=== PATIENT | female | born 2000 | race Caucasian/White ===

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

== ENCOUNTER 2022-02-17 16:17 | Emergency (ER) | payer MEDICAID ==
[~2022-02-17] VITALS: Ht 167.6 cm; Wt 66.0 kg
[~2022-02-17 16:17] MED LIST: CEPH500C2 MT; IBUP-2029 MT; PYR200 MT
[2022-02-17] MEDS ORDERED: BACITRACIN ZINC OINT UDPKT TOP NR (17:30)
[2022-02-17] MEDS ORDERED: LIDOCAINE HCL 1% 20ML VIAL (Pyxis) INJ INFIL NR (17:30)
[2022-02-17] MEDS ORDERED: IBUPROFEN 600MG TABLET PO STA (17:38)
[2022-02-17] MEDS ORDERED: BO1 TP (18:40)
[2022-02-17] MEDS ORDERED: IBUP-2029 PO (18:40)
[2022-02-17 19:15] VITALS: BP 112/78
== END 2022-02-17 19:15 | disposition home or self-care (01) ==
LOC: ER 16:17
DX: S61.307A Unspecified open wound of left little finger with damage to nail, initial encounter (principal); W22.8XXA Striking against or struck by other objects, initial encounter; Y93.89 Activity, other specified; Y92.018 Other place in single-family (private) house as the place of occurrence of the external cause
CPT/HCPCS: 73140; 99283; J3490